=== PATIENT | female | born 1965 | race Caucasian/White ===

== ENCOUNTER 2019-07-02 07:04 | Day surgery (SDC) | payer OTHER ==
[2019-07-02] MEDS ORDERED: PERCOCET 5-3251 EACH PO (10:21)
[2019-07-02] MEDS ORDERED: COLACE100 MG PO (10:21)
== END 2019-07-02 15:30 | disposition home or self-care (01) ==
LOC: CIR.AMB 07:04
DX: K60.3 Anal fistula (principal)